=== PATIENT | male | born 1970 | race Asian ===

== ENCOUNTER 2016-05-15 10:34 | Emergency (ER) | payer OTHER ==
[2016-05-15 11:13] VITALS: BP 170/88; PULSE 85; RESP 18; O2SAT 97
--- NOTE | 2016-05-15 11:42 | UCPHY ---
[id number] Chief complaint. Shaking, drink alcohol HPI. 46-year-old male has usually been drinking 2-3 day drinks per night but recently has been drinking quite a bit more. This morning he awoke with shaking and tremulousness. He noticed his heart was beating fast. He was slightly lightheaded on standing. Nausea but no vomiting. No chest discomfort or shortness of breath. No abdominal pain ROS Constitutional. no fever/chills, no weakness Eyes. no problems with vision ENT. no sore throat, no nasal drainage Cardiovascular. no chest pain Respiratory. no shortness of breath, no cough Abdominal. no abdominal pain, no nausea/vomiting, no diarrhea . no problems urinating MS. no calf pain/swelling, no neck/back pain, no joint pain Skin. no rash Lymph. no swollen glands Neuro. Tremulous this morning Past Medical/Surgical History: Healthy Social History: Single, nonsmoker, recent alcohol Smoking Status: Never smoked Physical Exam: General Appearance: Alert well-developed male mild distress vital signs are stable Eyes: Pupils equal and round no pallor or injection. ENT, Mouth: Mucous membranes are moist. Respiratory: There are no retractions, lungs are clear to auscultation. Cardiovascular: Regular rate and rhythm. Gastrointestinal: Abdomen is soft and nontender, no masses, bowel sounds normal. Neurological: Awake and alert, sensory and motor exams grossly normal. Tremulous Skin: Warm and dry, no rashes. Musculoskeletal: Neck is supple nontender. Extremities symmetrical, full range of motion. Psychiatric: Patient is oriented X 3, there is no agitation. Constitutional: Initial Vital Signs Heart Rate 85 05/15/16 10:59 Respiratory Rate 18 05/15/16 10:59 Blood Pressure 170/88 H 05/15/16 10:59 O2 Sat (%) 97 05/15/16 10:59 O2 Delivery Mode Room Air Allergies/Adverse Reactions: ibuprofen Allergy (Verified 09/10/15 11:10) Home Medications: Medication Instructions Recorded Gabapentin [Neurontin] 100 mg PO TID #60 cap 09/10/15 traZODONE 09/10/15 Ondansetron Odt [Zofran Odt] 4 mg PO Q4PRN PRN #4 tab 05/15/16 chlordiazePOXIDE [Librium 25 mg 25 mg PO QID PRN #14 cap 05/15/16 (*)] Medical Decision Making ED Course/Re-evaluation: Patient remained stable The patient and I discussed treatment plan including criteria for return importance of follow-up and further evaluation. He expresses understanding and agreement. Differential Diagnosis: Symptoms consistent with alcohol withdrawal. History is consistent as well with binge drinking on top of baseline moderate to heavy alcohol intake. I considered alcohol withdrawal, delirium tremens, pancreatitis Departure - Departure Disposition: Home, Routine, Self-Care Clinical Impression: Alcohol withdrawal Qualifiers: Complication of substance-induced condition: uncomplicated Qualifier Code: ( F10.230) Alcohol dependence with withdrawal, uncomplicated Condition: Good Instructions: Alcohol Withdrawal (ED) Additional Instructions: Drink plenty of fluids including Gatorade or other sports replacement drink to stay hydrated. Librium every 4-6 hours as needed to help with shakiness. Zofran if needed for nausea. Return for worsening symptoms. Re-evaluation by Dr. Miller in the next 2-3 days if not improving Referrals: NONE *PRIMARY CARE P,. [Primary Care Provider] - As per Instructions Ena Miller MD [Medical Doctor] - 2-3 days, if not improved Prescriptions: chlordiazePOXIDE [Librium 25 mg (*)] 25 mg PO QID PRN #14 cap PRN Reason: Agitation Ondansetron Odt [Zofran Odt] 4 mg PO Q4PRN PRN #4 tab PRN Reason: Nausea/Vomiting, Use 1st - PQRS PQRS Measurement: 134: Depression screening and followup, PRIME MD-PHQ2 (12 years and older) Over the last 2 weeks, how often have you been bothered by any of the following problems? 1. Feeling down, depressed, or hopeless? 2. Little interest or pleasure in doing things? Patient answered no to both 1 and 2 130: Documentation of medications. Reviewed all patient medications, doses, route and frequency. 226: Do you smoke? No.
== END 2016-05-15 12:02 | disposition home or self-care (01) ==
LOC: CED 10:34
DX: F10.230 Alcohol dependence with withdrawal, uncomplicated (principal)
CPT/HCPCS: 99214-PO; G0463-PO